=== PATIENT | female | born 1965 | race Hispanic/Latino ===

== ENCOUNTER 2017-10-31 07:33 | Outpatient (CLI) | payer BC ==
[~2017-10-31 07:33] MED LIST: ISOVUE-370 76%-LOCM 1 ML ONE
== END 2017-10-31 07:34 | disposition home or self-care (01) ==
LOC: BICCT 07:33
PROVIDERS: ATTEND Internal Medicine Hematology & Oncology
DX: C82.13 Follicular lymphoma grade II, intra-abdominal lymph nodes (principal); I88.0 Nonspecific mesenteric lymphadenitis; R59.0 Localized enlarged lymph nodes
CPT/HCPCS: 74177

== ENCOUNTER 2018-02-27 01:33 | Inpatient (IN) | payer BC ==
[2018-02-27 02:11] LABS: Bilirubin Negative (Negative); Blood, Urine Negative (Negative); Clarity CLEAR (Clear); Glucose, Urine (Dipstick) >=1000 mg/dL (Negative); Leukocyte Negative (Negative); Nitrite Negative (Negative); Protein, Urine (Dipstick) Negative (Neg-Trace); Urobilinogen 0.2 mg/dL (0.2-1.0); pH, Urine 7.5 (5.0-9.0)
[2018-02-27 02:21] LABS: #Basophils 0.1 thou/uL (0.0-0.2); #Eosinphils 0.1 thou/uL (0.0-0.7); #Lymphocytes 1.7 thou/uL (1.20-3.40); #Monocytes 0.5 thou/uL (0.11-0.59); #Neutrophils 4.9 thou/uL (1.40-6.50); %Basophils 0.8 % (0.0-1.0); %Eosinophils 0.7 % (0.0-10.0); %Monocytes 6.3 % (0.0-10.0); %Neutrophils 68.2 % (42.0-75.0); Hemoglobin 14.3 g/dL (12.0-16.0); Mean Corpuscular HGB CONC 32.9 g/dL (32.0-36.0); Mean Corpuscular Hemoglobin 29.1 pg (27.0-31.0); Mean Corpuscular Volume 88.3 fL (78.0-98.0); Mean Platelet Volume 7.2 fL (7.4-10.4); Platelet Count 276 thou/uL (130-400); RBC Distribution Width 13.2 % (11.5-14.5); Red Blood Cell (RBC) Count 4.93 mill/uL (4.20-5.40); White Blood Cell (WBC) Count 7.2 thou/uL (4.8-10.8)
[2018-02-27 02:37] LABS: ALT (SGPT) 32 U/L (8-55); AST (SGOT) 29 U/L (5-34); Albumin 4.1 g/dL (3.5-5.0); Alkaline Phosphatase 147 U/L (40-150); Anion Gap 11 mmol/L (10-20); BUN (Urea Nitrogen) 10 mg/dL (9.8-20.1); Bilirubin, Total 0.6 mg/dL (0.2-1.2); Calc. Creatinine Clearance 0 mL/min (70-130); Calcium 9.4 mg/dL (7.8-10.44); Carbon Dioxide 26 mmol/L (22-29); Chloride 105 mmol/L (98-107); Estimated GFR-MDRD 83; Globulin 3.8 g/dL (2.4-3.5); Glucose 128 mg/dL (70-105); Potassium 3.8 mmol/L (3.5-5.1); Protein, Total 7.9 g/dL (6.0-8.3); Sodium 138 mmol/L (136-145)
[2018-02-27] MEDS ORDERED: Ondansetron ODT 4 MG TAB ONE ×2 (05:00→07:44)
[2018-02-27] MEDS ORDERED: Benzocaine 20% Spray 60 ML CAN ONE (06:31)
[2018-02-27] MEDS ORDERED: Oxymetazoline HCl 0.05% ( 15 ML ) ONE (06:32)
[2018-02-27] MEDS ORDERED: Acetaminophen 325 MG TAB PO PRN (09:15)
[2018-02-27] MEDS ORDERED: Chloraseptic Spray 180 ml Bottle PO PRN (09:15)
[2018-02-27] MEDS ORDERED: Bisacodyl 10 MG SUPP PR PRN (09:15)
[2018-02-27] MEDS ORDERED: hydrALAZINE 20 MG/ML VIAL SLOW IVP PRN (09:15)
[2018-02-27] MEDS ORDERED: Ondansetron ODT 4 MG TAB SL PRN (09:15)
[2018-02-27] MEDS ORDERED: Sodium Chloride 0.65% Nasal 44 ML BOT EA NARE PRN (09:15)
[2018-02-27] MEDS ORDERED: Eucerin (Mineral Oil/Petrolatum,White) 30 gm Jar TOP PRN (09:15)
[2018-02-27] MEDS ORDERED: Artificial Tears 18 DROP/0.9 ML EA EYE PRN (09:15)
[2018-02-27] MEDS ORDERED: HumaLOG 300 UNITS/3 ML VIAL SC PRN ×2 (09:51)
[2018-02-27] MEDS ORDERED: Dextrose 5% in Water 1,000 ML IV PRN (09:51)
[2018-02-27] MEDS ORDERED: Dextrose 50% Abboject 50 ML SYRINGE SLOW IVP PRN (09:51)
[2018-02-27] MEDS: Lorazepam 2 MG/ML VIAL SLOW IVP PRN ×2 (09:57→20:29)
[2018-02-27] MEDS: Dextrose 5 % And 0.9 % NaCl 1,000 ML IV SCH ×2 (09:57→18:02)
[2018-02-27 10:06] VITALS: BMI 42.0
--- NOTE | 2018-02-27 10:31 | CT ---
PRELIMINARY REPORT/[facility]/EMERGENTY AFTER-HOURS PROCEDURE CT Abdomen and Pelvis With Intravenous Contrast CLINICAL HISTORY: 52 years old, female; Pain and signs and symptoms; Vomiting; Abdominal pain; Epigastric; Patient HX: Er 8; Pt reports HX of fatty liver; States 8 episodes of vomiting since 1900 today; Reports perumbili lauren and lower abdominal pain; States taking new mediations one . Surgical history of cholecystectomy, surgical history of hysterectomy. Biopsy in 2016 for dx of lymphoma. TECHNIQUE: Axial computed tomography images of the abdomen and pelvis with intravenous contrast. Coronal reforma tted images were created and reviewed. COMPARISON: No relevant prior studies available. FINDINGS: Lung bases: The visualized portions of the lung bases are normal. Mediastinum: A small hiatal hernia is present. ABDOMEN: Liver: There are no focal liver lesions identified. Gallbladder and bile ducts: There has been a cholecystectomy. No ductal dilation. Pancreas: The pancreas appears normal. No ductal dilation. Spleen: The spleen is normal. Adrenals: The adrenal glands are normal. Kidneys and ureters: There is a simple cyst in the left kidney. The right kidney is normal. No hydron ephrosis. Stomach and bowel: Small bowel is dilated up to 3.2 cm and contains fecal contents. There is abrupt c ollapse in the anterior pelvis consistent with small bowel obstruction. The stomach is normal. The du odenum is unremarkable. The colon is normal. No mucosal thickening. PELVIS: Appendix: A normal appendix is identified. Bladder: The bladder is normal. Reproductive: The uterus is not visualized, and may be atrophic or surgically absent. ABDOMEN and PELVIS: Intraperitoneal space: Normal. No free air. No significant fluid collection. Bones/joints: No acute fracture. No dislocation. Soft tissues: Normal. Vasculature: Normal. No abdominal aortic aneurysm. Lymph nodes: There are markedly enlarged mesenteric lymph nodes with a conglomeration of nodes measur ing up to 3 cm. IMPRESSION: 1. Small bowel is dilated up to 3.2 cm and contains fecal contents. There is abrupt collapse in the a nterior pelvis consistent with small bowel obstruction. 2. Marked mesenteric lymphadenopathy compatible with known diagnosis of lymphoma as above. Thank you for allowing us to participate in the care of your patient. Dictated and Authenticated by: Low Hidalgo MD 02/27/2018 5:57 AM Central Time ([place] & [place]) CT ABDOMEN AND PELVIS WITH IV CONTRAST: Date: 02-27-18 Performed on emergency basis at 0521 hours. History: Abdominal pain. FINDINGS: I agree with the preliminary report by Dr. Hidalgo from [facility]. Distention of the distal sm all bowel with fecalization with contents possibly related to partial or intermittent obstruction. Me senteric adenopathy consistent with lymphoma. Course calcification within the pelvis may be related t o fibroid disease of the uterus or vaginal cuff abnormality. Code QA POS: SJSabas
[2018-02-27] MEDS ORDERED: ISOVUE-370 76%-LOCM 1 ML ONE (10:35)
[2018-02-27] MEDS ORDERED: Prevnar 13-Val Conj/PF 0.5 ML SYRINGE IM ONE ×2 (10:45→13:00)
--- NOTE | 2018-02-27 11:07 | HP ---
PRIMARY CARE PHYSICIAN: [facility] call admission. REASON FOR ADMISSION: Small-bowel obstruction. HISTORY OF PRESENT ILLNESS: A 52-year-old female who presented to the Emergency Room for ev aluation of nausea, vomiting, abdominal pain. All symptoms started yesterday afternoon. The patient had several times vomiting containing food particle and biliary yellowish without any blood. Her pa in was intermittent, crampy, sharp, 6/10 in intensity, lasted the entire day. She tried Zofran that helped her vomiting, but nausea was persistent and crampy abdominal pain was persistent. She also alfaro d several times vomiting last night. She had last food at 7:30 yesterday. Since then she was not ab le to hold anything. She was not passing gas and had bowel movement since yesterday. She was feelin g mild abdominal distention. She denies any hematochezia or melena. She denies any UTI symptoms. S he denies any chest pain, palpitation, shortness of breath. She did not have this type of problem in past. She has history of lymphoma, but she is not on any specific chemotherapy and she is followed by Dr. Hernandez. She has previous history of cholecystectomy and hysterectomy. REVIEW OF SYSTEMS: The following complete review of systems was negative, unless otherwise mentioned in the HPI or below: Constitutional: Weight loss or gain, ability to conduct usual activities. Skin: Rash, itching. Eyes: Double vision, pain. ENT/Mouth: Nose bleeding, neck stiffness, pain, tenderness. Cardiovascular: Palpitations, dyspnea on exertion, orthopnea. Respiratory: Shortness of breath, wheezing, cough, hemoptysis, fever or night sweats. Gastrointestinal: Poor appetite, abdominal pain, heartburn, nausea, vomiting, constipation, or diarrhea. Genitourinary: Urgency, frequency, dysuria, nocturia. Musculoskeletal: Pain, swelling. Neurologic/Psychiatric: Anxiety, depression. Allergy/Immunologic: Skin rash, bleeding tendency. Please see my HPI for pertinent positive and negative. All other review of systems reviewed and nega tive except as mentioned in the HPI. PAST MEDICAL HISTORY: Irritable bowel syndrome, fatty liver disease, diabetes type 2. H. pylori inf ection in past with peptic ulcer disease, history of diverticulitis, hypothyroidism, gastroesophageal reflux disease. PAST PSYCHIATRIC HISTORY: Anxiety and depression. PAST SURGICAL HISTORY: Cholecystectomy, hysterectomy, biopsy in 2016 for lymph node biopsy for diagn osis of lymphoma. SOCIAL HISTORY: The patient is and lives at home. No history of tobacco, alcohol or illicit drug abuse. The patient has secondhand exposure of smoking from her . FAMILY HISTORY: One brother diagnosed with cirrhosis. Otherwise, no strong family history of premat ure coronary artery disease, stroke or cancer. ALLERGIES: No known drug allergy. CURRENT HOME MEDICATIONS: Dapagliflozin 5 mg daily, Lexapro 10 mg p.o. daily, Synthroid 75 mcg p.o. daily, Zofran ODT 4 mg t.i.d. p.r.n., Protonix 40 mg p.o. daily, rifaximin 550 mg t.i.d. EMERGENCY ROOM COURSE: The patient had NG tube placed, Zofran 4 mg x3 given morphine 2 mg x2 given. PHYSICAL EXAMINATION: VITAL SIGNS: On arrival, blood pressure 161/93, pulse 76, respiratory rate 17, temperature 97.6, sat uration 99% on room air, weight 99.7 kilograms. GENERAL: The patient is currently alert, awake, no obvious acute distress. HEENT: Head; normocephalic, atraumatic. Eyes; pupils round, reactive to light. Extraocular muscle intact. ENT; NG tube in place with low intermittent suction. Oropharynx is within normal limits. M oist mucous membrane, no oral lesion, no pharyngeal erythema, no exudate. NECK: Supple, no JVD, no thyromegaly, no carotid bruit. LUNGS: Clear to auscultation without any rhonchi or rales. CARDIAC: S1, S2 regular without any murmur. ABDOMEN: Soft. The patient does have tenderness predominantly periumbilical, unable to hear well rafael wel sounds. No peritoneal sign, no guarding, no rigidity, no rebound. BACK: Unremarkable, no CVA tenderness. EXTREMITIES: Upper extremity passive movement of all joints are normal. Lower extremities: No padmini a. Good peripheral pulsation, no calf tenderness. SKIN: No skin rash. HEMATOLOGIC: No obvious palpable lymphadenopathy. PSYCHIATRIC: Normal affect. NEUROLOGIC: Nonfocal examination. The patient moves all 4 limbs. Plantar bilateral flexor. SIGNIFICANT LABORATORY DATA: CT of the abdomen and pelvis showing small bowel dilated up to 3.2 cm a nd contains fecal material. There is abrupt collapse in anterior pelvis consistent with small-bowel obstruction. There is marked mesenteric lymphadenopathy. CBC: WBC 7.2, hemoglobin 14.3, platelet 276. BMP: Sodium 138, potassium 3.8, chloride 105, carbon dioxide 26, BUN 10, creatinine 0.73. Glucose 128, calcium 9.4. LFT: AST 29, ALT 32, alkaline phosp hatase is 147, albumin 4.1, lipase 30. Urinalysis: Glucosuria, ketonuria. ASSESSMENT AND PLAN: 1. Acute small-bowel obstruction. The patient has nausea, vomiting, abdominal pain started yesterda y, gradually getting worse. Radiographically the patient does have a small-bowel obstruction. Diffe rential diagnosis for etiology either adhesion induced obstruction given her previous history of chol ecystectomy and hysterectomy. Enlarged lymph node induced obstruction is possible given mesenteric l ymphadenopathy, volvulus ischemic etiology less likely. At this point, the patient will be treated c onservatively with NG tube with low intermittent suction. The patient will be given IV fluid for hyd ration. Her pain will be controlled with morphine p.r.n. basis. We will continue the Protonix 40 mg IV b.i.d. The patient will need small bowel x-ray to see resolution of small-bowel obstruction. If she fails conservative treatment then only she will need surgical treatment option. General Surgery will follow up on this patient as well. We will monitor in hospital closely. 2. Mesenteric lymphadenopathy. The patient does have a history of lymphoma and not on any specific treatment. We will consult Dr. Hernandez for her opinion. 3. Diabetes type 2. We will continue dextrose with NS solution for IV fluid given her diabetes hist ory and n.p.o. status. Meanwhile, we will continue with insulin as per sliding scale per protocol. Once patient starts p.o. intake then fluid, we will change to normal saline and will resume her home medication. 4. Hypothyroidism. Currently, the patient is n.p.o. and that is why we are holding Synthroid, but o nce patient's p.o. intake resumed then we will continue Synthroid 75 mcg p.o. daily 5. Anxiety and depression. We are holding Lexapro for now, but we will resume that after oral intak e started. For anxiety we will use Ativan 0.5 mg q.6h. p.r.n. 6. Gastroesophageal reflux disease. We will continue Protonix 40 mg IV b.i.d. for now and then we w ill resume to p.o. 7. Obesity with BMI 42. Dietary education given, weight loss education given. Healthy lifestyle me asures discussed with the patient. 8. Deep venous thrombosis prophylaxis. Lovenox 40 mg subcu daily. 9. Gastrointestinal prophylaxis. The patient is already on Protonix therapy. 10. Code status: The patient is FULL CODE. Patient's is surrogate decision maker. Disposition plan based on clinical course. We are expecting the patient's stay in hospital more than 2 midnights. Plan of care discussed with the patient in detail.
[2018-02-27] MEDS: Ondansetron HCl/PF 4 MG/2 ML Vial IVP PRN ×2 (12:11→20:36)
--- NOTE | 2018-02-27 18:40 | CON ---
DATE OF CONSULTATION: 02/27/2018 REASON FOR CONSULTATION: Follicular lymphoma. HISTORY OF PRESENT ILLNESS: Ms. Kyle is a pleasant 52-year-old female with a known his tory of low grade follicular lymphoma. She was diagnosed in 2014 and has been monitored with CT scan s every 3 months since that time. She presented to the emergency room with an acute onset of nausea and abdominal pain. She had a CT of her abdomen and pelvis, which showed small bowel dilation up to 3.2 cm. There was an collapse in the anterior pelvis consistent with small-bowel obstruction. She d id have her mesenteric lymphadenopathy consistent with her diagnosis of lymphoma. She had an NG tube placed and Dr. Hawkins was consulted to see the patient. The patient has a history of irritable bowel and is under the care of Dr. Mccann. She was recently started on new medication including Synthroid and rifaximin. Her last bowel movement was yesterday. She denies any chest pain or shortness of virgen ath. No recent fevers or night sweats, no weight loss. PAST MEDICAL HISTORY: 1. Asymptomatic follicular lymphoma with mesenteric lymphadenopathy diagnosed in 2014. 2. Chronic nausea associated with irritable bowel syndrome. 3. Hypothyroidism. 4. Psoriasis. 5. Diabetes. PAST SURGICAL HISTORY: None. ALLERGIES: No known drug allergies. HOME MEDICATIONS: 1. Dapagliflozin propanediol 5 mg daily. 2. Citalopram 10 mg daily. 3. Synthroid 75 mcg daily. 4. Zofran p.r.n. 5. Protonix 40 mg daily. 6. Rifaximin 550 mg t.i.d. FAMILY HISTORY: Her mother had rheumatoid arthritis. SOCIAL HISTORY: , has no children. No alcohol, tobacco or illicit drug use. REVIEW OF SYSTEMS: Twelve-point review of systems is positive for nausea and abdominal pain, otherwi se negative. PHYSICAL EXAMINATION: VITAL SIGNS: Temperature is 97.8, pulse 64, respiratory rate 16, BP is 120/58. She is 98% on room a ir. GENERAL: Obese female, in no acute distress. HEENT: Normocephalic, atraumatic. Pupils equal and reactive to light. NECK: Supple. CARDIOVASCULAR: Regular rate and rhythm. LUNGS: Clear. ABDOMEN: Soft, nontender, bowel sounds are hyperactive. She has a NG tube in place with scant green output. EXTREMITIES: No clubbing, cyanosis or edema. SKIN: No rash. HEMATOLOGIC: No petechia or purpura. NEUROLOGIC: Nonfocal. PSYCHIATRIC: The patient is alert and oriented and appropriate. PERTINENT LABORATORY AND X-RAYS: Current WBCs 7.2, hemoglobin 14.3, hematocrit 43.5, platelet count is 276,000. She has got 68% neutrophils, 24% lymphocytes. Sodium is 138, potassium 3.8, chloride 10 5, CO2 is 26, BUN 10, creatinine 0.73, calcium is 9.4, total bilirubin is 0.6, AST is 29, ALT is 32, alkaline phosphatase is 147. Serum total protein is 7.9, albumin 4.1, globulin 3.8. ASSESSMENT AND PLAN: 1. Low grade follicular lymphoma. 2. Small-bowel obstruction. DISCUSSION: The patient has an NG tube placed. Dr. Hawkins is on the case. The patient's CT scan was not compared to her prior CT scan in 10/2017 as it was unavailable. I have spoken with Dr. Jostin nagel who compared the two scans and states that there is no change in the size of her lymph nodes on the scan compared to the prior scan from 10/31/2017. She does have a long history of irritable rosario l syndrome. We will consider a GI consult. She will follow up [facility] Dr[facility] There is no treatment needed at this time for her follicular lymphoma. We will follow her re florin.
[2018-02-27] MEDS: Pantoprazole 40 MG VIAL IVP SCH (20:30)
[2018-02-27] MEDS ORDERED: Famotidine/PF 20 mg/2ml Vial SLOW IVP SCH (21:00)
[2018-02-28] MEDS: Dextrose 5 % And 0.9 % NaCl 1,000 ML IV SCH ×3 (02:55→17:44)
--- NOTE | 2018-02-28 03:22 | HP ---
DATE OF CONSULTATION: 02/27/2018 CHIEF COMPLAINT: Abdominal pain, nausea, vomiting. HISTORY OF PRESENT ILLNESS: The patient is a 52-year-old female who has known follicular lymphoma of the abdominal cavity, has known adenopathy. He has also had previous surgeries and had the acute on set of mid abdominal pain yesterday afternoon associated with nausea, vomiting. Her last bowel movem ent was yesterday. PAST MEDICAL HISTORY: Obesity, lymphoma, diabetes, hypothyroidism. PAST SURGICAL HISTORY: Cholecystectomy, hysterectomy and that was done laparoscopically and a laparo scopic biopsy of a lymph node. MEDICATIONS: Farxiga, Levothroid and pantoprazole. ALLERGIES: No known drug allergies. FAMILY HISTORY: Asthma. SOCIAL HISTORY: , works at [employer]. No tobacco or alcohol. PHYSICAL EXAMINATION: VITAL SIGNS: Temperature 97.6, pulse 68, blood pressure 149/72. GENERAL: Obese female in no apparent distress. HEENT: There is an NG tube in place. LUNGS: Clear. HEART: Regular rate and rhythm. ABDOMEN: Obese, soft, nontender, no palpable masses. IMAGING: CT scan shows dilated small bowel, abrupt transition zone in the anterior pelvis. There is multiple adenopathy. ASSESSMENT: Small-bowel obstruction, possibly due to adhesions, possibly due to lymphoma. PLAN: NG suction, IV hydration, small bowel follow-through in the morning if not better.
[2018-02-28 06:02] LABS: #Lymphocytes 1.4 thou/uL (1.20-3.40); #Monocytes 0.6 thou/uL (0.11-0.59); #Neutrophils 5.3 thou/uL (1.40-6.50); %Basophils 0.2 % (0.0-1.0); %Eosinophils 0.5 % (0.0-10.0); %Lymphocytes 18.6 % (21.0-51.0); %Monocytes 8.1 % (0.0-10.0); %Neutrophils 72.6 % (42.0-75.0); Hemoglobin 12.6 g/dL (12.0-16.0); Mean Corpuscular HGB CONC 31.3 g/dL (32.0-36.0); Mean Corpuscular Hemoglobin 28.4 pg (27.0-31.0); Mean Corpuscular Volume 90.5 fL (78.0-98.0); Platelet Count 247 thou/uL (130-400); RBC Distribution Width 13.5 % (11.5-14.5); Red Blood Cell (RBC) Count 4.44 mill/uL (4.20-5.40); White Blood Cell (WBC) Count 7.3 thou/uL (4.8-10.8)
[2018-02-28 06:35] LABS: ALT (SGPT) 30 U/L (8-55); AST (SGOT) 25 U/L (5-34); Albumin 3.6 g/dL (3.5-5.0); Alkaline Phosphatase 130 U/L (40-150); Anion Gap 7 mmol/L (10-20); BUN (Urea Nitrogen) 6 mg/dL (9.8-20.1); Bilirubin, Total 0.5 mg/dL (0.2-1.2); Calc. Creatinine Clearance 139 mL/min (70-130); Calcium 8.5 mg/dL (7.8-10.44); Carbon Dioxide 26 mmol/L (22-29); Chloride 109 mmol/L (98-107); Estimated GFR-MDRD 86; Globulin 3.1 g/dL (2.4-3.5); Glucose 156 mg/dL (70-105); Potassium 3.6 mmol/L (3.5-5.1); Protein, Total 6.7 g/dL (6.0-8.3); Sodium 138 mmol/L (136-145)
[2018-02-28] MEDS: Pantoprazole 40 MG VIAL IVP SCH ×2 (08:01→20:37)
[2018-02-28] MEDS: Enoxaparin Sodium 40 MG/0.4 ML SYRINGE SC SCH (08:01)
--- NOTE | 2018-02-28 09:55 | PDOC.PN ---
- Subjective Encounter Start Date: 02/28/18 Encounter Start Time: 07:00 -: old records requested/rev Patient seen and examined for sbo, she is passing gas, no abdominal pain. No new complaints. No overnight events - Objective Resuscitation Status: Resuscitation Status FULL:Full Resuscitation MAR Reviewed: Yes Vital Signs & Weight: Vital Signs (12 hours) Temp Pulse Resp BP Pulse Ox 02/28/18 07:25 98.5 F 70 16 96 02/28/18 07:18 98.5 F 70 16 132/68 96 02/28/18 05:42 98.1 F 63 16 127/61 97 02/28/18 00:00 97.8 F 67 16 130/67 97 Weight Weight 215 lb I&O: 02/27/18 02/28/18 03/01/18 06:59 06:59 06:59 Intake Total 1432 Output Total 800 Balance 632 Result Diagrams: 02/28/18 05:41 02/28/18 05:41 Additional Labs: Accuchecks 02/28/18 02/28/18 02/27/18 05:37 00:09 17:58 POC Glucose 133 H 146 H 135 H 02/27/18 11:41 POC Glucose 132 H Phys Exam - Physical Examination Constitutional: NAD HEENT: PERRLA, moist MMs, sclera anicteric NG tube+ Neck: no JVD, supple Respiratory: no wheezing, no rales, no rhonchi Cardiovascular: RRR, no significant murmur, no rub Gastrointestinal: soft, non-tender, no distention, positive bowel sounds Musculoskeletal: no edema, pulses present Neurological: non-focal, normal sensation, moves all 4 limbs Psychiatric: normal affect, A&O x 3 Skin: no rash, normal turgor Dx/Plan (1) SBO (small bowel obstruction) Code(s): K56.609 - UNSP INTESTNL OBST, UNSP TO PARTIAL VERSUS COMPLETE OBST Status: Acute (2) Anxiety and depression Code(s): F41.9 - ANXIETY DISORDER, UNSPECIFIED; F32.9 - MAJOR DEPRESSIVE DISORDER, SINGLE EPISODE, UNSPECIFIED Status: Chronic (3) Diabetes type 2, controlled Code(s): E11.9 - TYPE 2 DIABETES MELLITUS WITHOUT COMPLICATIONS Status: Chronic (4) Follicular lymphoma Code(s): C82.90 - FOLLICULAR LYMPHOMA, UNSPECIFIED, UNSPECIFIED SITE Status: Chronic Comment: stable (5) GERD (gastroesophageal reflux disease) Code(s): K21.9 - GASTRO-ESOPHAGEAL REFLUX DISEASE WITHOUT ESOPHAGITIS Status: Chronic (6) Hypothyroidism Code(s): E03.9 - HYPOTHYROIDISM, UNSPECIFIED Status: Chronic (7) Irritable bowel syndrome Status: Chronic (8) Mesenteric lymphadenopathy Code(s): R59.0 - LOCALIZED ENLARGED LYMPH NODES Status: Chronic Comment: stable (9) Morbid obesity with BMI of 40.0-44.9, adult Code(s): E66.01 - MORBID (SEVERE) OBESITY DUE TO EXCESS CALORIES; Z68.41 - BODY MASS INDEX (BMI) 40.0-44.9, ADULT Status: Chronic - Plan cont current plan of care, plan discussed w/ family * will clamp NG tube * see how she does * if OK, will start clear liquid diet and advance diet as tolerated * will resume selected home meds * medication reviewed as below * symptomatic treatment. * discussed with family Review of Systems - Review of Systems Constitutional: negative: fever, chills, sweats, weakness, malaise, other ENT: negative: Ear Pain, Ear Discharge, Nose Pain, Nose Discharge, Nose Congestion, Mouth Pain, Mouth Swelling, Throat Pain, Throat Swelling, Other Respiratory: negative: Cough, Dry, Shortness of Breath, Hemoptysis, SOB with Excertion, Pleuritic Pain, Sputum, Wheezing Cardiovascular: negative: chest pain, palpitations, orthopnea, paroxysmal nocturnal dyspnea, edema, light headedness, other Gastrointestinal: negative: Nausea, Vomiting, Abdominal Pain, Diarrhea, Constipation, Melena, Hematochezia, Other Genitourinary: negative: Dysuria, Frequency, Incontinence, Hematuria, Retention , Other Musculoskeletal: negative: Neck Pain, Shoulder Pain, Arm Pain, Back Pain, Hand Pain, Leg Pain, Foot Pain, Other Skin: negative: Rash, Lesions, [place], Bruising, Other - Medications/Allergies Allergies/Adverse Reactions: Allergies Allergy/AdvReac Type Severity Reaction Status Date / Time No Known Allergies Allergy Verified 02/27/18 09:43 Medications: Current Medications Acetaminophen (Tylenol) 650 mg PO Q4H PRN PRN Reason: Headache/Fever or Pain Artificial Tears (Tears Naturale) 0 drop EA EYE PRN PRN PRN Reason: Dry Eyes Bisacodyl (Dulcolax) 10 mg AL Q24H PRN PRN Reason: Constipation Dextrose/Water (Dextrose 50%) 25 gm SLOW IVP PRN PRN PRN Reason: Hypoglycemia Enoxaparin Sodium (Lovenox) 40 mg SC 0900 [facility] Last Admin: 02/28/18 08:01 Dose: 40 mg Glucagon (Glucagon) 1 mg IM PRN PRN PRN Reason: Hypoglycemia Hydralazine HCl (Apresoline) 10 mg SLOW IVP Q4H PRN PRN Reason: Systolic BP > 180 Dextrose/Sodium Chloride (D5 0.9% Ns) 1,000 mls @ 125 mls/hr IV .Q8H [facility] Last Admin: 02/28/18 08:05 Dose: 1,000 mls Dextrose/Water (D5w) 1,000 mls @ 0 mls/hr IV .Q0M PRN; As Directed PRN Reason: Hypoglycemia Insulin Human Lispro (Humalog) 0 units SC .MODERATE SLIDING SC PRN PRN Reason: Moderate Correctional Scale Insulin Human Lispro (Humalog) 0 units SC .BEDTIME SLIDING SC PRN PRN Reason: Bedtime Correctional Scale Lorazepam (Ativan) 0.5 mg SLOW IVP Q6H PRN PRN Reason: Anxiety/Agitation Last Admin: 02/27/18 20:29 Dose: 0.5 mg Mineral Oil/White Petrolatum (Eucerin Cream) 0 gm TOP BIDPRN PRN PRN Reason: Dry Skin Morphine Sulfate (Morphine) 2 mg SLOW IVP Q2H PRN PRN Reason: Pain Last Admin: 02/27/18 19:35 Dose: 2 mg Ondansetron HCl (Zofran Odt) 4 mg SL Q6H PRN PRN Reason: Nausea/Vomiting Ondansetron HCl (Zofran) 4 mg IVP Q6H PRN PRN Reason: Nausea/Vomiting Last Admin: 02/27/18 20:36 Dose: 4 mg Pantoprazole Sodium (Protonix) 40 mg IVP Q12HR [facility] Last Admin: 02/28/18 08:01 Dose: 40 mg Phenol (Chloraseptic [place] 180 Ml Bot) 0 ml PO PRN PRN PRN Reason: Sore Throat Sodium Chloride ([place] Nasal [place] 0.65%) 0 ml EA NARE QIDPRN PRN PRN Reason: Nasal Congestion Sodium Chloride (Flush - Normal Saline) 10 ml IVF Q12HR SONAL Last Admin: 02/28/18 08:02 Dose: 10 ml Sodium Chloride (Flush - Normal Saline) 10 ml IVF PRN PRN PRN Reason: Saline Flush Last Admin: 02/27/18 19:36 Dose: 10 ml
[2018-03-01] MEDS: Dextrose 5 % And 0.9 % NaCl 1,000 ML IV SCH (03:58)
[2018-03-01] MEDS: Levothyroxine Sodium 75 MCG TAB PO SCH (06:29)
[2018-03-01] MEDS: Enoxaparin Sodium 40 MG/0.4 ML SYRINGE SC SCH (09:14)
[2018-03-01] MEDS: Escitalopram Oxalate 10 mg Tablet PO SCH (09:14)
[2018-03-01] MEDS: Pantoprazole 40 MG VIAL IVP SCH (10:18)
--- NOTE | 2018-03-01 10:25 | DIS ---
DATE OF ADMISSION: 02/27/2018 DATE OF DISCHARGE: 03/01/2018 PRIMARY CARE PHYSICIAN: [facility] call admission. DISCHARGE DISPOSITION: Home. PRIMARY DISCHARGE DIAGNOSES: Small-bowel obstruction suspected from adhesion resolved with conservat lila therapy. SECONDARY DISCHARGE DIAGNOSES: Mesenteric lymphadenopathy, follicular lymphoma, gastroesophageal ref lux disease, hypothyroidism, diabetes type 2, anxiety and depression, morbid obesity with body mass i ndex 42, irritable bowel syndrome. PRIMARY PROCEDURE/OPERATION: None. RADIOLOGICAL INVESTIGATION: Abdomen and pelvis CT scan showed findings suggestive of small-bowel obs truction and mesenteric lymphadenopathy. SIGNIFICANT LABORATORY DATA: WBC 7.3, hemoglobin 12.6, and platelet 247. Sodium 138, potassium 3.6, BUN 6, creatinine 0.71, calcium 8.5. LFT normal, lipase 30. Urinalysis unremarkable. DISCHARGE MEDICATIONS: Patient will continue all her previous medications; dapagliflozin 5 mg p.o. d aily, Lexapro 10 mg p.o. daily, Synthroid 75 mcg p.o. daily, Zofran ODT 4 mg p.o. t.i.d. p.r.n., Prot brian 40 mg p.o. daily, rifaximin 550 mg p.o. t.i.d. CONTRAINDICATIONS: None. CODE STATUS: FULL CODE. INPATIENT CONSULTANTS: Dr. Hawkins was consulted while in hospital for small-bowel obstruction. Dr. Sugar acevedo was consulted for follicular lymphoma. TEST RESULTS PENDING ON DISCHARGE: None. ALLERGIES: No known drug allergy. DISCHARGE PLAN: Post hospital, patient will make appointment with Dr. Hernandez and Dr. Hawkins as instr ucted. HOSPITAL COURSE: A 52-year-old female who was admitted by mn on 02/27/2018. Please see my HPI for f urther details. The patient was having nausea, vomiting and abdominal pain. She was diagnosed with a small-bowel obstruction on CT scan. The patient also found with mesenteric lymphadenopathy. She h as follicular lymphoma and she is followed by Dr. Hernandez. She is not on any chemotherapy for follic ular lymphoma and just only observed periodically with imaging. When we compared her previous imagin g with this imaging, patient's mesenteric lymphadenopathy was not changed. Patient has previous hist ory of cholecystectomy and hysterectomy. We suspected current small-bowel obstruction from adhesions . We treated her conservatively with NG tube with low intermittent suction, IV fluid, control of justin n. Next day, patient started passing gas and she also had large bowel movement. Her obstruction cli nically resolved. She did not require any small bowel follow through. We started on clear liquid diet and advance her diet as tolerated. We are expecting this patient discharge later on today if she is tolerating her solid food. The patient is seen and examined at bedside today. PHYSICAL EXAMINATION: VITAL SIGNS: Currently, temperature 98.7, pulse 69, respiratory rate 16, saturation 96% on room air, blood pressure 124/76, weight 215 pounds. GENERAL: The patient is currently alert, awake, no acute distress. HEAD: Normocephalic, atraumatic. EYES: Pupils round and reactive to light. Extraocular muscle intact. ENT: Oropharynx within normal limits. Moist mucous membrane, no oral lesion, no pharyngeal erythema , no exudate. NECK: Supple, no JVD, no thyromegaly, no carotid bruit. LUNGS: Clear to auscultation without any rhonchi or rales. CARDIAC: S1 and S2 regular without any murmur. ABDOMEN: Soft, benign, obesity present. EXTREMITIES: No edema. NEUROLOGIC: Nonfocal examination. Overall, patient is medically stable for discharge as long as she tolerates diet.
--- NOTE | 2018-03-01 11:02 | PDOC.PN ---
- Subjective Encounter Start Date: 03/01/18 Encounter Start Time: 10:00 Patient seen and examined. No new complaints. No overnight events - Objective Resuscitation Status: Resuscitation Status FULL:Full Resuscitation MAR Reviewed: Yes Vital Signs & Weight: Vital Signs (12 hours) Temp 03/01/18 00:00 98.7 F Weight Weight 215 lb I&O: 02/28/18 03/01/18 03/02/18 06:59 06:59 06:59 Intake Total 1432 Output Total 800 Balance 632 Result Diagrams: 02/28/18 05:41 02/28/18 05:41 Additional Labs: Accuchecks 03/01/18 02/28/18 02/28/18 06:34 23:41 18:02 POC Glucose 128 H 125 H 118 H 02/28/18 12:49 POC Glucose 115 H Phys Exam - Physical Examination Constitutional: NAD HEENT: PERRLA, moist MMs, sclera anicteric Neck: no JVD, supple Respiratory: no wheezing, no rales, no rhonchi Cardiovascular: RRR, no significant murmur, no rub Gastrointestinal: soft, non-tender, no distention, positive bowel sounds Musculoskeletal: no edema, pulses present Neurological: non-focal, normal sensation, moves all 4 limbs Psychiatric: normal affect, A&O x 3 Skin: no rash, normal turgor Dx/Plan (1) SBO (small bowel obstruction) Code(s): K56.609 - UNSP INTESTNL OBST, UNSP TO PARTIAL VERSUS COMPLETE OBST Status: Acute (2) Anxiety and depression Code(s): F41.9 - ANXIETY DISORDER, UNSPECIFIED; F32.9 - MAJOR DEPRESSIVE DISORDER, SINGLE EPISODE, UNSPECIFIED Status: Chronic (3) Diabetes type 2, controlled Code(s): E11.9 - TYPE 2 DIABETES MELLITUS WITHOUT COMPLICATIONS Status: Chronic (4) Follicular lymphoma Code(s): C82.90 - FOLLICULAR LYMPHOMA, UNSPECIFIED, UNSPECIFIED SITE Status: Chronic Comment: stable (5) GERD (gastroesophageal reflux disease) Code(s): K21.9 - GASTRO-ESOPHAGEAL REFLUX DISEASE WITHOUT ESOPHAGITIS Status: Chronic (6) Hypothyroidism Code(s): E03.9 - HYPOTHYROIDISM, UNSPECIFIED Status: Chronic (7) Irritable bowel syndrome Status: Chronic (8) Mesenteric lymphadenopathy Code(s): R59.0 - LOCALIZED ENLARGED LYMPH NODES Status: Chronic Comment: stable (9) Morbid obesity with BMI of 40.0-44.9, adult Code(s): E66.01 - MORBID (SEVERE) OBESITY DUE TO EXCESS CALORIES; Z68.41 - BODY MASS INDEX (BMI) 40.0-44.9, ADULT Status: Chronic - Plan cont current plan of care * medication reviewed as below * symptomatic treatment * see discharge félix. Review of Systems - Review of Systems Eyes: negative: Pain, Vision Change, Conjunctivae Inflammation, Eyelid Inflammation, Redness, Other ENT: negative: Ear Pain, Ear Discharge, Nose Pain, Nose Discharge, Nose Congestion, Mouth Pain, Mouth Swelling, Throat Pain, Throat Swelling, Other Respiratory: negative: Cough, Dry, Shortness of Breath, Hemoptysis, SOB with Excertion, Pleuritic Pain, Sputum, Wheezing Cardiovascular: negative: chest pain, palpitations, orthopnea, paroxysmal nocturnal dyspnea, edema, light headedness, other Gastrointestinal: negative: Nausea, Vomiting, Abdominal Pain, Diarrhea, Constipation, Melena, Hematochezia, Other Genitourinary: negative: Dysuria, Frequency, Incontinence, Hematuria, Retention , Other Musculoskeletal: negative: Neck Pain, Shoulder Pain, Arm Pain, Back Pain, Hand Pain, Leg Pain, Foot Pain, Other Skin: negative: Rash, Lesions, Betito, Bruising, Other - Medications/Allergies Allergies/Adverse Reactions: Allergies Allergy/AdvReac Type Severity Reaction Status Date / Time No Known Allergies Allergy Verified 02/27/18 09:43 Medications: Current Medications Acetaminophen (Tylenol) 650 mg PO Q4H PRN PRN Reason: Headache/Fever or Pain Artificial Tears (Tears Naturale) 0 drop EA EYE PRN PRN PRN Reason: Dry Eyes Bisacodyl (Dulcolax) 10 mg [place] Q24H PRN PRN Reason: Constipation Dextrose/Water (Dextrose 50%) 25 gm SLOW IVP PRN PRN PRN Reason: Hypoglycemia Enoxaparin Sodium (Lovenox) 40 mg SC 0900 [facility] Last Admin: 03/01/18 09:14 Dose: 40 mg Escitalopram Oxalate (Lexapro) 10 mg PO DAILY [facility] Last Admin: 03/01/18 09:14 Dose: 10 mg Glucagon (Glucagon) 1 mg IM PRN PRN PRN Reason: Hypoglycemia Hydralazine HCl (Apresoline) 10 mg SLOW IVP Q4H PRN PRN Reason: Systolic BP > 180 Dextrose/Water (D5w) 1,000 mls @ 0 mls/hr IV .Q0M PRN; As Directed PRN Reason: Hypoglycemia Insulin Human Lispro (Humalog) 0 units SC .MODERATE SLIDING SC PRN PRN Reason: Moderate Correctional Scale Insulin Human Lispro (Humalog) 0 units SC .BEDTIME SLIDING SC PRN PRN Reason: Bedtime Correctional Scale Levothyroxine Sodium (Synthroid) 75 mcg PO 0600 [facility] Last Admin: 03/01/18 06:29 Dose: 75 mcg Lorazepam (Ativan) 0.5 mg SLOW IVP Q6H PRN PRN Reason: Anxiety/Agitation Last Admin: 02/27/18 20:29 Dose: 0.5 mg Mineral Oil/White Petrolatum (Eucerin Cream) 0 gm TOP BIDPRN PRN PRN Reason: Dry Skin Morphine Sulfate (Morphine) 2 mg SLOW IVP Q2H PRN PRN Reason: Pain Last Admin: 02/27/18 19:35 Dose: 2 mg Ondansetron HCl (Zofran Odt) 4 mg SL Q6H PRN PRN Reason: Nausea/Vomiting Ondansetron HCl (Zofran) 4 mg IVP Q6H PRN PRN Reason: Nausea/Vomiting Last Admin: 02/27/18 20:36 Dose: 4 mg Pantoprazole Sodium (Protonix) 40 mg PO DAILY [facility] Last Admin: 03/01/18 09:14 Dose: 40 mg Phenol (Chloraseptic [place] 180 Ml Bot) 0 ml PO PRN PRN PRN Reason: Sore Throat Sodium Chloride ([place] Nasal [place] 0.65%) 0 ml EA NARE QIDPRN PRN PRN Reason: Nasal Congestion Sodium Chloride (Flush - Normal Saline) 10 ml IVF Q12HR [facility] Last Admin: 03/01/18 09:14 Dose: 10 ml Sodium Chloride (Flush - Normal Saline) 10 ml IVF PRN PRN PRN Reason: Saline Flush Last Admin: 02/27/18 19:36 Dose: 10 ml
[2018-03-02] MEDS: Levothyroxine Sodium 75 MCG TAB PO SCH (06:29)
[2018-03-02 07:21] VITALS: BP 131/82; TEMP 98.3
[2018-03-02] MEDS: Escitalopram Oxalate 10 mg Tablet PO SCH (09:20)
[2018-03-02] MEDS: Enoxaparin Sodium 40 MG/0.4 ML SYRINGE SC SCH (09:20)
--- NOTE | 2018-03-02 10:16 | PDOC.PN ---
- Subjective Encounter Start Date: 03/02/18 Encounter Start Time: 07:00 Patient seen and examined. No new complaints. No overnight events - Objective Resuscitation Status: Resuscitation Status FULL:Full Resuscitation MAR Reviewed: Yes Vital Signs & Weight: Vital Signs (12 hours) Temp Pulse Resp BP Pulse Ox 03/02/18 09:24 98.3 F 58 L 18 03/02/18 07:49 98.3 F 58 L 18 98 03/02/18 07:19 98.3 F 58 L 18 131/82 98 Weight Weight 215 lb I&O: 03/01/18 03/02/18 03/03/18 06:59 06:59 06:59 Intake Total 970 Balance 970 Result Diagrams: 02/28/18 05:41 02/28/18 05:41 Additional Labs: Accuchecks 03/02/18 03/01/18 03/01/18 06:34 21:18 16:35 POC Glucose 104 95 88 03/01/18 11:19 POC Glucose 88 Phys Exam - Physical Examination Constitutional: NAD HEENT: PERRLA, moist MMs, sclera anicteric Neck: no JVD, supple Respiratory: no wheezing, no rales, no rhonchi Cardiovascular: RRR, no significant murmur, no rub Gastrointestinal: soft, non-tender, no distention, positive bowel sounds Musculoskeletal: no edema, pulses present Neurological: non-focal, normal sensation, moves all 4 limbs Lymphatic: no nodes Psychiatric: normal affect, A&O x 3 Skin: no rash, normal turgor Dx/Plan (1) SBO (small bowel obstruction) Code(s): K56.609 - UNSP INTESTNL OBST, UNSP TO PARTIAL VERSUS COMPLETE OBST Status: Resolved (2) Anxiety and depression Code(s): F41.9 - ANXIETY DISORDER, UNSPECIFIED; F32.9 - MAJOR DEPRESSIVE DISORDER, SINGLE EPISODE, UNSPECIFIED Status: Chronic (3) Diabetes type 2, controlled Code(s): E11.9 - TYPE 2 DIABETES MELLITUS WITHOUT COMPLICATIONS Status: Chronic (4) Follicular lymphoma Code(s): C82.90 - FOLLICULAR LYMPHOMA, UNSPECIFIED, UNSPECIFIED SITE Status: Chronic Comment: stable (5) GERD (gastroesophageal reflux disease) Code(s): K21.9 - GASTRO-ESOPHAGEAL REFLUX DISEASE WITHOUT ESOPHAGITIS Status: Chronic (6) Hypothyroidism Code(s): E03.9 - HYPOTHYROIDISM, UNSPECIFIED Status: Chronic (7) Irritable bowel syndrome Status: Chronic (8) Mesenteric lymphadenopathy Code(s): R59.0 - LOCALIZED ENLARGED LYMPH NODES Status: Chronic Comment: stable (9) Morbid obesity with BMI of 40.0-44.9, adult Code(s): E66.01 - MORBID (SEVERE) OBESITY DUE TO EXCESS CALORIES; Z68.41 - BODY MASS INDEX (BMI) 40.0-44.9, ADULT Status: Chronic - Plan cont current plan of care, plan discussed w/ family * tolerating diet * sbo resoled * stable for discharge * has GI follow up * medication reviewed as below * symptomatic treatment * see discharge summery from yesterday. Review of Systems - Review of Systems Eyes: negative: Pain, Vision Change, Conjunctivae Inflammation, Eyelid Inflammation, Redness, Other ENT: negative: Ear Pain, Ear Discharge, Nose Pain, Nose Discharge, Nose Congestion, Mouth Pain, Mouth Swelling, Throat Pain, Throat Swelling, Other Respiratory: negative: Cough, Dry, Shortness of Breath, Hemoptysis, SOB with Excertion, Pleuritic Pain, Sputum, Wheezing Cardiovascular: negative: chest pain, palpitations, orthopnea, paroxysmal nocturnal dyspnea, edema, light headedness, other Gastrointestinal: negative: Nausea, Vomiting, Abdominal Pain, Diarrhea, Constipation, Melena, Hematochezia, Other Genitourinary: negative: Dysuria, Frequency, Incontinence, Hematuria, Retention , Other Musculoskeletal: negative: Neck Pain, Shoulder Pain, Arm Pain, Back Pain, Hand Pain, Leg Pain, Foot Pain, Other Skin: negative: Rash, Lesions, Betito, Bruising, Other - Medications/Allergies Allergies/Adverse Reactions: Allergies Allergy/AdvReac Type Severity Reaction Status Date / Time No Known Allergies Allergy Verified 02/27/18 09:43 Medications: Current Medications Acetaminophen (Tylenol) 650 mg PO Q4H PRN PRN Reason: Headache/Fever or Pain Artificial Tears (Tears Naturale) 0 drop EA EYE PRN PRN PRN Reason: Dry Eyes Bisacodyl (Dulcolax) 10 mg [place] Q24H PRN PRN Reason: Constipation Dextrose/Water (Dextrose 50%) 25 gm SLOW IVP PRN PRN PRN Reason: Hypoglycemia Enoxaparin Sodium (Lovenox) 40 mg SC 0900 [facility] Last Admin: 03/02/18 09:20 Dose: 40 mg Escitalopram Oxalate (Lexapro) 10 mg PO DAILY [facility] Last Admin: 03/02/18 09:20 Dose: 10 mg Glucagon (Glucagon) 1 mg IM PRN PRN PRN Reason: Hypoglycemia Hydralazine HCl (Apresoline) 10 mg SLOW IVP Q4H PRN PRN Reason: Systolic BP > 180 Dextrose/Water (D5w) 1,000 mls @ 0 mls/hr IV .Q0M PRN; As Directed PRN Reason: Hypoglycemia Insulin Human Lispro (Humalog) 0 units SC .MODERATE SLIDING SC PRN PRN Reason: Moderate Correctional Scale Insulin Human Lispro (Humalog) 0 units SC .BEDTIME SLIDING SC PRN PRN Reason: Bedtime Correctional Scale Levothyroxine Sodium (Synthroid) 75 mcg PO 06 [facility] Last Admin: 03/02/18 06:29 Dose: 75 mcg Lorazepam (Ativan) 0.5 mg SLOW IVP Q6H PRN PRN Reason: Anxiety/Agitation Last Admin: 02/27/18 20:29 Dose: 0.5 mg Mineral Oil/White Petrolatum (Eucerin Cream) 0 gm TOP BIDPRN PRN PRN Reason: Dry Skin Morphine Sulfate (Morphine) 2 mg SLOW IVP Q2H PRN PRN Reason: Pain Last Admin: 02/27/18 19:35 Dose: 2 mg Ondansetron HCl (Zofran Odt) 4 mg SL Q6H PRN PRN Reason: Nausea/Vomiting Ondansetron HCl (Zofran) 4 mg IVP Q6H PRN PRN Reason: Nausea/Vomiting Last Admin: 02/27/18 20:36 Dose: 4 mg Pantoprazole Sodium (Protonix) 40 mg PO DAILY [facility] Last Admin: 03/02/18 09:20 Dose: 40 mg Phenol (Chloraseptic [place] 180 Ml Bot) 0 ml PO PRN PRN PRN Reason: Sore Throat Sodium Chloride ([place] Nasal [place] 0.65%) 0 ml EA NARE QIDPRN PRN PRN Reason: Nasal Congestion Sodium Chloride (Flush - Normal Saline) 10 ml IVF Q12HR [facility] Last Admin: 03/02/18 09:21 Dose: 10 ml Sodium Chloride (Flush - Normal Saline) 10 ml IVF PRN PRN PRN Reason: Saline Flush Last Admin: 02/27/18 19:36 Dose: 10 ml
--- NOTE | 2018-03-02 14:08 | ADD-DIS ---
ADDENDUM This patient was discharged yesterday, but we observed one more day to see how she tolerates her diet . She tolerated diet very well and this morning she was perfectly fine. The patient was seen and ex amined at bedside today. Please see my progress note from today for further details. There is no change in my discharge summary dictated yesterday.
== END 2018-03-02 11:52 | disposition home or self-care (01) | DRG 389 ==
LOC: ERS 01:33 → ONC 07:23
PROVIDERS: ADMIT Internal Medicine; ATTEND Internal Medicine
DX: K56.609 Unspecified intestinal obstruction, unspecified as to partial versus complete obstruction (principal); Z68.41 Body mass index [BMI] 40.0-44.9, adult; R59.0 Localized enlarged lymph nodes; E11.9 Type 2 diabetes mellitus without complications; E03.9 Hypothyroidism, unspecified; F32.9 Major depressive disorder, single episode, unspecified; F41.9 Anxiety disorder, unspecified; E66.01 Morbid (severe) obesity due to excess calories; K21.9 Gastro-esophageal reflux disease without esophagitis; L40.9 Psoriasis, unspecified; K58.9 Irritable bowel syndrome, unspecified; K76.0 Fatty (change of) liver, not elsewhere classified
CPT/HCPCS: 36415; 36416; 43752; 74177; 80053; 81003; 83690; 85025; 90471; 90670; 96374; 96376; A4216; C9113; G0009; J1650; J2060; J2270; J2405; Q0162

== ENCOUNTER 2018-06-13 15:36 | Outpatient (CLI) | payer BC ==
[2018-06-13 16:00] LABS: #Lymphocytes 0.3 thou/uL (1.20-3.40); #Monocytes 0.5 thou/uL (0.11-0.59); #Neutrophils 3.5 thou/uL (1.40-6.50); %Basophils 0.8 % (0.0-1.0); %Eosinophils 0.8 % (0.0-10.0); %Lymphocytes 7.4 % (21.0-51.0); %Neutrophils 79.1 % (42.0-75.0); Hemoglobin 15.1 g/dL (12.0-16.0); Mean Corpuscular HGB CONC 31.9 g/dL (32.0-36.0); Mean Corpuscular Hemoglobin 28.5 pg (27.0-31.0); Mean Corpuscular Volume 89.2 fL (78.0-98.0); Mean Platelet Volume 6.8 fL (7.4-10.4); Platelet Count 237 thou/uL (130-400); RBC Distribution Width 13.7 % (11.5-14.5); Red Blood Cell (RBC) Count 5.31 mill/uL (4.20-5.40); White Blood Cell (WBC) Count 4.4 thou/uL (4.8-10.8)
[2018-06-13 16:18] LABS: Anion Gap 10 mmol/L (10-20); BUN (Urea Nitrogen) 16 mg/dL (9.8-20.1); Calc. Creatinine Clearance 0 mL/min (70-130); Calcium 9.9 mg/dL (7.8-10.44); Carbon Dioxide 29 mmol/L (22-29); Chloride 101 mmol/L (98-107); Estimated GFR-MDRD 78; Glucose 135 mg/dL (70-105); Potassium 3.8 mmol/L (3.5-5.1); Sodium 136 mmol/L (136-145)
== END 2018-06-13 15:37 | disposition home or self-care (01) ==
LOC: LABBT 15:36
PROVIDERS: ATTEND Surgery
DX: Z01.812 Encounter for preprocedural laboratory examination (principal); C85.90 Non-Hodgkin lymphoma, unspecified, unspecified site
CPT/HCPCS: 80048; 85025

== ENCOUNTER 2018-06-19 07:18 | Day surgery (SDC) | payer BC ==
[2018-06-13 15:51] VITALS: BMI 41.2
[2018-06-19] MEDS ORDERED: Midazolam HCl 2 mg/2 ml Vial ONE (08:13)
[2018-06-19] MEDS ORDERED: CEFAZOLIN/Water 2 GM/20 ML SYRINGE ONE (08:32)
[2018-06-19] MEDS ORDERED: Propofol 1,000 MG/100 ML VIAL IV ONE (09:20)
[2018-06-19] MEDS ORDERED: Bupivacaine/Epinephrine 0.25% 30 ML VIAL ONE (09:21)
[2018-06-19] MEDS ORDERED: Lidocaine 2% PF Inj 2 ML VIAL ONE (09:21)
[2018-06-19] MEDS ORDERED: Dexamethasone 20 MG/5 ML VIAL ONE (12:55)
[2018-06-19] MEDS ORDERED: Ondansetron HCl/PF 4 MG/2 ML Vial ONE (12:55)
[2018-06-19] MEDS ORDERED: PROPOFOL 200 MG/20 ML VIAL ONE (12:55)
--- NOTE | 2018-06-19 13:29 | RAD ---
SEMI UPRIGHT PORTABLE CHEST ONE VIEW: History: 52-year-old female, status post Mediport placement. Comparison: 01-10-16 FINDINGS: Left subclavian catheter and injection port have been placed. No pneumothorax, pleural effusion, or o ther acute process. IMPRESSION: No acute intrathoracic disease. Left subclavian catheter and injection port placed without complicati on. POS: [facility]
--- NOTE | 2018-06-20 10:50 | PDOC.OP ---
Operative Note - Operative Note Operative Note: PROCEDURE: Left subclavian MediPort placement with fluoroscopic guidance SURGEON: Sun Cruz M.D. DATE OF PROCEDURE: 06/19/2018 PREOPERATIVE DIAGNOSIS: Lymphoma POSTOPERATIVE DIAGNOSIS: Lymphoma HISTORY: Patient is diagnosed with progressive low-grade lymphoma. Chemotherapy has been instituted but the patient has had significant local skin problems at peripheral IV sites. Her oncologist has requested MediPort placement for ongoing chemotherapy. OPERATIVE PROCEDURE IN DETAIL: After informed consent was obtained and appropriate preoperative antibiotics were administered, the patient was taken to the operating room and placed in supine position and monitored anesthesia care was administered. The patient was then placed in Trendelenburg position and the subclavian vein accessed easily with excellent flow of dark venous non- pulsatile blood. A wire threaded easily and was confirmed to be in the superior vena cava by fluoroscopy. Additional local anesthesia was infused to the skin and subcutaneous tissues lateral and inferior to the access site. The skin incision was extended from the wire laterally and a subcutaneous pocket developed inferiorly. A Mediport was obtained and confirmed to fit in the subcutaneous pocket. This was secured inferiorly to the pectoralis fascia with a Prolene suture, which was clamped, but not tied. The dilator and sheath were then placed over the wire and the dilator and wire removed leaving the sheath in place. The clamped MediPort tubing was tunneled through the sheath, which was then split and removed leaving the MediPort tubing in place. The tubing was adjusted until the tip was confirmed by fluoroscopy to be in the superior vena cava just above the atrium. The tubing was clamped at the skin level and cut and the tubing secured to the port, which was then placed in the subcutaneous pocket. The previously placed suture was secured and two additional sutures were placed to fix the port in place within the pocket. The port was aspirated with the Bishop needle and had excellent flow of dark venous non-pulsatile blood and easily flushed without resistance. The subcutaneous tissues were closed with a running Monocryl suture, following which the skin was closed with a running subcuticular Monocryl suture. Dermabond dressings were placed and the hub was again accessed through the skin and confirmed to easily aspirate and easily flush. The course of the catheter was confirmed by fluoroscopy to be smooth with the tip appropriately located in the superior vena cava. The patient was taken her back to the day stay unit in good condition. Estimated blood loss was minimal. There were no complications. There were no specimens.
== END 2018-06-19 12:40 | disposition home or self-care (01) ==
LOC: SDC 07:18
PROVIDERS: ATTEND Surgery
PROC: 02HV33Z Insertion of Infusion Device into Superior Vena Cava, Percutaneous Approach (ICD-10-PCS; principal; 2018-06-19)
DX: C85.90 Non-Hodgkin lymphoma, unspecified, unspecified site (principal); E03.9 Hypothyroidism, unspecified; Z79.899 Other long term (current) drug therapy
CPT/HCPCS: 71045; C1788; J1100; J1642; J2250; J2405; J2704

== ENCOUNTER 2018-07-12 07:29 | Outpatient (CLI) | payer BC ==
--- NOTE | 2018-07-12 08:47 | CT ---
CT OF THE ABDOMEN AND PELVIS WITH IV CONTRAST: INDICATION: History of grade II follicular fullness status post 3 cycles of chemotherapy. COMPARISON: Prior CT of the abdomen and pelvis dated 02/27/2018. CONTRAST: 70 cc of Isovue 370. FINDINGS: The prominent mesenteric lymphadenopathy has all decreased in prominence. The index node within the central mesentery previously seen measuring 3.5 cm now measures 1.9 cm. The previously seen 2.3 cm l ymph node on image 39 of series 2 on the 02/27/2018 examination now measures 1.1 cm. There is edema se en within the mesenteric root and within the leaves of the mesentery. No drainable fluid collection is evident. There is fatty infiltration of the liver. There is a moderate-size hiatal hernia. The gallbladder i s surgically absent. There is a stable left renal cyst. The spleen is normal in size. Pancreas and adrenal glands are normal-appearing. Small and large bowel reveal no acute abnormality. There is s cattered colonic diverticulosis. Bladder is partially decompressed. There is scattered degenerative and osteoarthritic change. IMPRESSION: 1. Findings consistent with response to therapy. There has been significant reduction in size of th e numerous enlarged mesenteric lymph nodes when compared to the most recent examination dated 8. 2. Persistent fatty infiltration of the liver. 3. Stable left renal cyst. 4. Prior cholecystectomy. 5. Colonic diverticulosis. POS: [facility]
[2018-07-12] MEDS ORDERED: ISOVUE-370 76%-LOCM 1 ML ONE (13:55)
== END 2018-07-12 07:30 | disposition home or self-care (01) ==
LOC: BICCT 07:29
PROVIDERS: ATTEND Internal Medicine Hematology & Oncology
DX: C82.13 Follicular lymphoma grade II, intra-abdominal lymph nodes (principal); N28.1 Cyst of kidney, acquired; K76.0 Fatty (change of) liver, not elsewhere classified; K57.30 Diverticulosis of large intestine without perforation or abscess without bleeding; Z90.49 Acquired absence of other specified parts of digestive tract
CPT/HCPCS: 74177

== ENCOUNTER 2018-09-02 10:51 | Inpatient (IN) | payer BC ==
[2018-09-02 11:49] LABS: Band 22 % (5-11); Hemoglobin 14.4 g/dL (12.0-16.0); Lymphocytes 6 % (21-51); MDiff Complete? YES; Mean Corpuscular Hemoglobin 29.9 pg (27.0-31.0); Mean Corpuscular Volume 90.5 fL (78.0-98.0); Mean Platelet Volume 7.9 fL (7.4-10.4); Monocytes 6 % (0-10); Neutrophil 66 % (42-75); Platelet Count 164 thou/uL (130-400); RBC Distribution Width 14.3 % (11.5-14.5); Red Blood Cell (RBC) Count 4.83 mill/uL (4.20-5.40)
[2018-09-02 11:53] LABS: ALT (SGPT) 48 U/L (8-55); AST (SGOT) 36 U/L (5-34); Albumin 3.7 g/dL (3.5-5.0); Alkaline Phosphatase 280 U/L (40-150); Anion Gap 17 mmol/L (10-20); BUN (Urea Nitrogen) 9 mg/dL (9.8-20.1); Bilirubin, Total 0.5 mg/dL (0.2-1.2); Calc. Creatinine Clearance 0 mL/min (70-130); Calcium 9.5 mg/dL (7.8-10.44); Carbon Dioxide 22 mmol/L (22-29); Chloride 97 mmol/L (98-107); Estimated GFR-MDRD 54; Globulin 3.7 g/dL (2.4-3.5); Potassium 3.3 mmol/L (3.5-5.1); Protein, Total 7.4 g/dL (6.0-8.3); Sodium 133 mmol/L (136-145)
[2018-09-02 12:00] LABS: Glucose 605 mg/dL (70-105)
[2018-09-02] MEDS ORDERED: Insulin Regular 300 UNITS/3 ML VIAL ONE (12:37)
[2018-09-02] MEDS ORDERED: Metoclopramide HCl 10 MG/2 ML VIAL ONE (12:37)
[2018-09-02] MEDS ORDERED: Ondansetron PF 4 MG/2 ML Vial ONE (12:37)
[2018-09-02 12:51] LABS: Lipase 25 U/L (8-78); Phosphorus 2.5 mg/dL (2.3-4.7)
[2018-09-02 13:07] LABS: Bilirubin Negative (Negative); Blood, Urine Negative (Negative); Clarity CLEAR (Clear); Glucose, Urine (Dipstick) >=1000 mg/dL (Negative); Leukocyte Negative (Negative); Nitrite Negative (Negative); Protein, Urine (Dipstick) Negative (Neg-Trace); Specific Gravity, Urine 1.033 (1.002-1.036); Urobilinogen 0.2 mg/dL (0.2-1.0); pH, Urine 6.5 (5.0-9.0)
[2018-09-02 13:07] LABS: Base Excess-Venous 3.1 mmol/L (0 (+/- 2.5)); Bicarbonate (HCO3v) 25.6 mmol/L (22.0-29.0); CO2 Tension (PvCO2) 32.3 mmHg (41.0-51.0); Calcium, Ionized 1.01 mmol/L (1.12-1.32); Hemoglobin - Calc 15.2 g/dL (12.0-18.0); O2 Tension (PvO2) 51.1 mmHg (35.0-45.0); Potassium 2.9 mmol/L (3.4-4.7); T. Carbon Dioxide 26.6 mmol/L (1.0-85.0); pH (Venous) 7.506 (7.35-7.45); vO2 Saturation-calc 89.4 % (94-98)
[2018-09-02] MEDS ORDERED: Cefepime 2 GM VIAL ONE (14:09)
[2018-09-02] MEDS ORDERED: cefTRIAXone\\ROCEPHIN 1 GM VIAL ONE (14:14)
[2018-09-02] MEDS ORDERED: Potassium Chloride 20 MEQ TAB ONE (15:34)
--- NOTE | 2018-09-02 15:36 | RAD ---
CHEST 1 VIEW: Date: 09/02/18 HISTORY: Nausea and vomiting. COMPARISON: Radiograph from 2018. FINDINGS: There has been some retraction of the port catheter with the tip projecting over the azygos vein. Rem ainder of lungs are clear. No pneumothorax. IMPRESSION: Some minimal retraction of the port catheter at the venotomy site with tip at the level of the azygos vein. POS: [facility]
[2018-09-02] MEDS ORDERED: cloNIDine 0.1 MG TAB PO PRN (16:00)
[2018-09-02] MEDS ORDERED: Ondansetron PF 4 MG/2 ML Vial IVP PRN (16:00)
[2018-09-02] MEDS ORDERED: Acetaminophen 650 MG Suppository PR PRN (16:00)
[2018-09-02] MEDS ORDERED: Diabetic Tussin 200 MG/10 ML UDCUP PO PRN (16:00)
[2018-09-02] MEDS ORDERED: Benzonatate 100 MG CAP PO PRN (16:00)
[2018-09-02] MEDS ORDERED: Ondansetron ODT 4 MG TAB PO PRN (16:00)
[2018-09-02] MEDS ORDERED: Bisacodyl 10 MG SUPP PR PRN (16:00)
[2018-09-02] MEDS ORDERED: Nitroglycerin 0.4 MG TAB (25 Tab Bottle) SL PRN (16:00)
[2018-09-02] MEDS ORDERED: Bisacodyl 5 MG TAB PO PRN (16:00)
[2018-09-02] MEDS ORDERED: hydrALAZINE 20 MG/ML VIAL SLOW IVP PRN (16:00)
[2018-09-02] MEDS ORDERED: HYDROcodone/Acetaminophen 5/325 mg Tablet PO PRN ×2 (16:00)
[2018-09-02] MEDS ORDERED: Calcium Carbonate 500 MG ChewTAB PO PRN (16:00)
[2018-09-02] MEDS ORDERED: Acetaminophen 325 MG TAB PO PRN (16:00)
[2018-09-02] MEDS ORDERED: Senokot S 8.6-50 MG TAB PO PRN (16:00)
[2018-09-02] MEDS ORDERED: Dextrose 50% Abboject 50 ML SYRINGE SLOW IVP PRN (16:08)
[2018-09-02] MEDS ORDERED: Dextrose 5% in Water 1,000 ML IV PRN (16:08)
[2018-09-02] MEDS ORDERED: HumaLOG 300 UNITS/3 ML VIAL SC PRN ×2 (16:08)
[2018-09-02] MEDS ORDERED: Promethazine HCl 25 MG/ML VIAL IM/IV PRN (16:11)
[2018-09-02 17:13] LABS: Lactic Acid 1.5 mmol/L (0.5-2.2)
--- NOTE | 2018-09-02 17:46 | HP ---
PRIMARY CARE PHYSICIAN: Steven Kessler MD. PRIMARY ONCOLOGIST: Dr. Hernandez. CHIEF COMPLAINT: Persistent nausea and vomiting with low-grade fever, mild abdominal pain, and some cough. HISTORY OF PRESENTING ILLNESS: Ms. Kyle is a very pleasant 53-year-old female with past medical history of Hodgkin lymphoma, currently undergoing chemotherapy, who presented to the ER with the above-mentioned complaint. History is mainly obtained by the patient herself and electronic medical records have been reviewed. Ms. Kyle reports that her last chemotherapy session was just last week. She has been fighting the nausea and vomiting for the last 3 days. She has been visiting in the hospital when her daughter had a child. Otherwise, she denies any sick contacts. She has noticed that she has been having some low-grade fever on and off for the last few days with some mild cough. Denies any shortness of breath or sore throat. She denies any abdominal pain or loose stools. She is somewhat constipated. Denies any dysuria, frequency, or urgency. Upon presentation to the emergency room, she was afebrile with temperature of 98.4, somewhat tachycardic with heart rate of 101. Her initial examination included a chest x-ray, which was unremarkable. She was found to have a blood sugar of 605 initially without any anion gap. Her lactic acid was normal at 2.2; however, she had leukocytosis with WBCs of 12.0 with 22% bands. She was given IV insulin as well as potassium as her potassium is low at 3.3, along with cefepime and is now being admitted to medical floor for intractable nausea, vomiting, as well as rule out sepsis. PAST MEDICAL HISTORY: 1. Low-grade B-cell lymphoma. 2. Hypothyroidism. 3. History of H pylori gastritis in 2012. 4. Diverticulitis and esophagitis. 5. Hyperthyroidism. 6. Anxiety. 7. History of mesenteric lymphadenopathy. PAST SURGICAL HISTORY: 1. Hysterectomy. 2. Cholecystectomy. FAMILY HISTORY: Father is , was diagnosed with heart disease. Mother has had hypertension, dyslipidemia, coronary artery disease, and is alive and present at bedside. One of her brothers was diagnosed with diabetes. SOCIAL HISTORY: No history of drug, tobacco, or alcohol abuse. She is and lives with her family. ALLERGIES: NO KNOWN MEDICATION ALLERGIES. CURRENT MEDICATIONS: 1. Farxiga 5 mg daily. 2. Zofran p.r.n. 3. Protonix 40 mg daily. 4. Levothyroxine 75 mcg daily. CODE STATUS: Full code, discussed with the patient. REVIEW OF SYSTEMS: A 12-point review of system is done and is negative except those mentioned in history and physical. LABORATORY DATA: CBC shows WBCs of 12.0 with 22% bands with normal neutrophils. VBG shows pH of 7.5. Serum chemistry shows sodium of 133, potassium 3.3, bicarb 22, normal anion gap at 17. Blood sugar 605, which has improved to a blood sugar of 291. Lactic acid normal at 2.2. Lipase normal at 25. AST and ALT are unremarkable. Alkaline phosphatase elevated to 280, which seems to be chronic. Urinalysis showed glucosuria and ketonuria. Chest x-ray by my review, does not have any evidence to suggest infiltrates. PHYSICAL EXAMINATION: VITAL SIGNS: Upon presentation, blood pressure 144/77, pulse of 101, respirations 18, saturating 95% on room air, and temperature 98.4. T-max is 100.7 in the emergency room. GENERAL: No acute distress. Awake, alert, and oriented x3. Family is at bedside. HEENT: Mucous membrane is moist and pink. Pupils are equal and reactive to light and accommodation. No scleral icterus. No oropharyngeal exudate or erythema. NECK: Supple without any lymphadenopathy, JVD, or bruit. CHEST: Clear to auscultation without any wheezing, rales, or rhonchi. HEART: Rate and rhythm are regular without any murmurs, rubs, or gallops. ABDOMEN: Obese, soft, nontender, nondistended. No guarding, rebound, or rigidity. No suprapubic tenderness. No CVA tenderness. EXTREMITIES: Free of any cyanosis, clubbing, or edema. NEUROLOGIC: Nonfocal. SKIN: Free of any rashes or bruises. PSYCHIATRIC: Normal affect. IMPRESSION AND PLAN: 1. Intractable nausea and vomiting. The etiology is unclear at this time. The patient presents with severe dehydration. She will be treated symptomatically and supportively. We will send Clostridium difficile antigen and toxin testing, given the fact that she is on chemotherapy. Gentle IV fluids will be started. 2. Hyperglycemia. The patient's blood sugar is much improved, and most likely, the hyperglycemia is secondary to severe dehydration. There is no evidence to suggest diabetic ketoacidosis. We will put her insulin sliding scale for now and I have instructed her to resume her Farxiga for now. Accu-Cheks before meals and at bedtime will be instituted as well. 3. Hypokalemia. Start her on normal saline with potassium added as her potassium levels are even lower after insulin institution at 2.9. Repeat labs in the morning. 4. Leukocytosis with left shift. Given the patient's chemotherapeutic status and constitutional symptoms, she will be treated with empiric broad-spectrum IV antibiotics. Urine culture and blood cultures have been obtained in the emergency room. We will add blood culture from her [facility] as well. We will also add Clostridium difficile testing. We will request a courtesy consultation with her Oncology Team as well. Antibiotics can be discontinued if her cultures remain negative. Suspect viral bronchitis versus viral gastroenteritis until bacterial infection is ruled in. 5. Hodgkin lymphoma. The patient is status post treatment of lymphoma and has finished her chemotherapy. She will continue to follow up in outpatient setting. 6. Diabetes mellitus. As above, start her on insulin sliding scale and resume Farxiga. 7. Code status, full code, discussed with the patient. 8. Deep venous thrombosis and gastrointestinal prophylaxis and p.r.n. medications. DISPOSITION: Ms. Kyle is currently being admitted to medical floor for intractable nausea, vomiting, hyperglycemia, and rule out sepsis. Estimated length of stay at this time is at least 2 to 3 midnights. Further management will depend upon her clinical course. Job ID: [id number]
[2018-09-02 17:59] VITALS: BMI 39.7
[2018-09-02] MEDS: Vancomycin HCl 1.5 GM in Sodium Chloride 0.9% 250 ML 300 ML IVPB SCH (20:51)
[2018-09-02] MEDS: Famotidine 20 MG TAB PO SCH (20:55)
[2018-09-02] MEDS ORDERED: Vancomycin HCl 1 GM in Premix Bag 1 BAG IVPB SCH (21:00)
[2018-09-02] MEDS: 1/2 NS w/KCL 20 mEq 1,000 ML IV SCH (21:25)
[2018-09-03] MEDS: Cefepime 1 GM in Sodium Chloride 0.9% 100 ML IVPB SCH ×2 (02:43→15:33)
[2018-09-03] MEDS: 1/2 NS w/KCL 20 mEq 1,000 ML IV SCH ×2 (02:44→09:50)
[2018-09-03 08:30] LABS: Anion Gap 13 mmol/L (10-20); BUN (Urea Nitrogen) 7 mg/dL (9.8-20.1); Calc. Creatinine Clearance 138 mL/min (70-130); Calcium 8.3 mg/dL (7.8-10.44); Carbon Dioxide 22 mmol/L (22-29); Chloride 105 mmol/L (98-107); Estimated GFR-MDRD Greater than 90; Glucose 130 mg/dL (70-105); Potassium 3.3 mmol/L (3.5-5.1); Sodium 137 mmol/L (136-145)
[2018-09-03 09:00] LABS: Hemoglobin 11.8 g/dL (12.0-16.0); Mean Corpuscular HGB CONC 32.4 g/dL (32.0-36.0); Mean Corpuscular Hemoglobin 29.3 pg (27.0-31.0); Mean Corpuscular Volume 90.5 fL (78.0-98.0); Mean Platelet Volume 8.2 fL (7.4-10.4); Platelet Count 160 thou/uL (130-400); RBC Distribution Width 14.5 % (11.5-14.5); Red Blood Cell (RBC) Count 4.02 mill/uL (4.20-5.40)
[2018-09-03] MEDS ORDERED: Enoxaparin Sodium 30 MG/0.3 ML SYRINGE SC SCH (09:00)
[2018-09-03 09:37] LABS: Band 25 % (5-11); Lymphocytes 10 % (21-51); MDiff Complete? YES; Monocytes 16 % (0-10); Neutrophil 49 % (42-75); PLT Morphology Comment Appears Adequate; Polychromasia SLIGHT = 2-3 cells (100X) (0-2/hpf); Toxic Granulation SLIGHT
[2018-09-03] MEDS: Famotidine 20 MG TAB PO SCH (09:46)
[2018-09-03] MEDS: Vancomycin HCl 1.5 GM in Sodium Chloride 0.9% 250 ML 300 ML IVPB SCH (09:47)
--- NOTE | 2018-09-03 12:02 | DIS ---
DATE OF ADMISSION: 09/02/2018 DATE OF DISCHARGE: 09/03/2018 PRIMARY CARE PHYSICIAN: Steven Kessler MD DISCHARGE DIAGNOSES: 1. Moderate dehydration. 2. Intractable nausea and vomiting. 3. Non-Hodgkin's lymphoma. 4. Receiving chemotherapy. CONSULTATIONS: None. PROCEDURE: None. HISTORY AND PHYSICAL: Ms. Kyle is a 53-year-old female, status post chemo about 5 days prior to admission. She had intractable nausea and vomiting, was dehydrated for 3 days prior to admission and presented to the emergency department. There, she was found to be dehydrated and hypokalemic. We were called for admission. HOSPITAL COURSE: The patient was seen and examined by Dr. Burkett and placed in inpatient status. She was hydrated overnight. She was given antiemetics. By this morning, she got little nauseated with her morning medicines, but she will be able to tolerate dinner and breakfast this morning without any difficulties. She tolerated the lunch today and was stable for discharge with outpatient followup. PHYSICAL EXAMINATION: The patient was seen and examined on the day of discharge. Discharge plan and disposition were discussed with the patient [id number] with the family at the bedside. DISCHARGE MEDICATIONS: Home medications all to continue, none to discontinue. Please see medicine reconciliation sheet. DISCHARGE CONDITION: Stable. DISPOSITION: Discharged home via private vehicle. FOLLOWUP APPOINTMENTS: 1. Dr. Steven Kessler within a week. 2. Dr. Hernandez per her clinic. DISCHARGE ACTIVITY: As tolerated. DISCHARGE DIET: Heart healthy diet recommended. Job ID: [id number]
[2018-09-03] MEDS: Potassium Chloride 20 MEQ TAB PO SCH ×2 (12:29→15:26)
[2018-09-03 12:48] VITALS: BP 110/63; TEMP 98.6
== END 2018-09-03 17:52 | disposition home or self-care (01) | DRG 641 ==
LOC: ERS 10:51 → ERHOLD 15:15 → T4-A 17:57 → ONC 19:37
PROVIDERS: ADMIT Internal Medicine; ATTEND Internal Medicine
DX: E86.0 Dehydration (principal); C85.90 Non-Hodgkin lymphoma, unspecified, unspecified site; R11.2 Nausea with vomiting, unspecified; E87.6 Hypokalemia; R50.9 Fever, unspecified; E03.9 Hypothyroidism, unspecified; F41.9 Anxiety disorder, unspecified; D72.829 Elevated white blood cell count, unspecified; E11.65 Type 2 diabetes mellitus with hyperglycemia; K21.9 Gastro-esophageal reflux disease without esophagitis; Z90.710 Acquired absence of both cervix and uterus; Z90.49 Acquired absence of other specified parts of digestive tract
CPT/HCPCS: 36415; 36416; 71045; 80048; 80053; 81003; 82330; 82803; 83605; 83690; 83735; 84100; 85025; 86850; 86900; 86901; 87040; 87077; 87086; 87804; 94760; 96365; 96367; 96375; J0692; J0696; J1642; J1650; J1815; J2405; J2765; J3370; J7050

== ENCOUNTER 2018-10-04 07:27 | Outpatient (CLI) | payer BC ==
--- NOTE | 2018-10-04 09:28 | CT ---
CT CHEST WITH CONTRAST CT ABDOMEN WITH CONTRAST CT PELVIS WITH CONTRAST: Date: 10/04/18 HISTORY: C82.13 follicular lymphoma Grade II. COMPARISON: Multiple prior examinations, most recent 07/12/18. FINDINGS: Lungs are clear. No pneumothorax. No effusion. No suspicious pulmonary nodule. No consolidation. There is a central venous catheter in place with tip at the superior SVC in good position. No mediastinal adenopathy. Thyroid is unremarkable. No pericardial effusion. Moderate size sliding hiatal hernia. Thoracic aortic size is normal, as well as pulmonary trunk size. No axillary adenopathy. No supraclav icular adenopathy. There is diffuse hepatic steatosis. There has been interval size decrease of the proximal small bowel mesenteric lymph nodes with the ind ex lesion as described measuring 1.2 cm, previously 1.9 cm axial image 68. Index proximal small bowel lymph node axial image 75 continues to measure approximately 1.1 cm, unchanged. There is small volume fluid within the mesenteric root, similar to the comparison examination, as wel l as infiltration of the fat. No new or enlarging lymph nodes relative to the comparison examination. No retroperitoneal periaortic adenopathy. No iliac adenopathy. Mild diverticular disease of the sigmoid colon without active current inflammation. Hypodensities of both kidneys are similar, suggesting cysts. There is sclerosis of the pubic symphysis. IMPRESSION: Continued interval response to therapy with RECIST criteria of partial response. No new or enlarging adenopathy. POS: [facility]
[2018-10-04] MEDS ORDERED: ISOVUE-370 76%-LOCM 1 ML ONE (10:30)
== END 2018-10-04 07:28 | disposition home or self-care (01) ==
LOC: BICCT 07:27
PROVIDERS: ATTEND Internal Medicine Hematology & Oncology
DX: C82.13 Follicular lymphoma grade II, intra-abdominal lymph nodes (principal); I88.0 Nonspecific mesenteric lymphadenitis
CPT/HCPCS: 71260; 74177; Q9966

== ENCOUNTER 2019-04-05 07:29 | Outpatient (CLI) | payer BC ==
--- NOTE | 2019-04-05 11:18 | CT ---
CHEST CT WITH CONTRAST ABDOMEN CT WITH CONTRAST PELVIC CT WITH CONTRAST: HISTORY: Grade II follicular lymphoma. The patient is under chemotherapy. The patient had intraabdominal lym ph nodes. COMPARISON: 10/04/2018. FINDINGS: CHEST CT: Trachea and central bronchi are patent. No masses or consolidation. Minimal dependent atelectatic c hanges in the lung bases. No pleural effusion or pneumothorax. RIGHT LUNG: No masses or nodules. LEFT LUNG: No masses or nodules. No evidence of mediastinal mass, lymphadenopathy, or hematoma. Heart size is within normal limits. No significant pericardial fluid. No evidence of axillary lymphadenopathy. ABDOMEN CT: Gallbladder is surgically absent. Diffuse hypoattenuation of the liver, compatible with hepatic stea tosis. No enhancing masses. Spleen, pancreas, and the adrenal glands have appropriate attenuation a nd enhancement. Stable hypodensity in the mid left renal cortex. Symmetric enhancement of the kidneys. Bilaterally, no obstructive uropathy. Gastric mucosa, duodenum, and multiple normal-caliber small bowel lops are identified. Ileocecal daysi ction is normal. Diverticula in the left hemicolon. No diverticulitis. Redemonstration of stranding involving the central abdominal mesentery with extension of edema expand ing into the left abdominal mesentery. There are enlarged mesenteric lymph nodes. The overall numbe r of enlarged lymph nodes appears to have slightly decreased when compared to the previous examinatio n. There is an intraabdominal lymph node measuring 0.8 x 2.3 cm (axial image #66). This lymph node was previously reported to be 2.4 x 1.2 cm (previously axial image #68). There is slight interval decrea se in size. Index lymph node previously was reported to be 1.1 cm (axial image #75). Currently, thi s index lymph node measures 1.1 cm and is unchanged (axial image #67). CT PELVIS: No mass, lymphadenopathy, free air, or free fluid. OSSEOUS STRUCTURES: There are no lytic or blastic lesions within the osseous structures. IMPRESSION: Continued interval response to therapy with RECIST criteria of partial response. No new or enlarged lymph nodes. POS: [facility]
[2019-04-05] MEDS ORDERED: ISOVUE-370 76%-LOCM 1 ML ONE (15:41)
== END 2019-04-05 07:30 | disposition home or self-care (01) ==
LOC: BICCT 07:29
PROVIDERS: ATTEND Internal Medicine Hematology & Oncology
DX: C82.13 Follicular lymphoma grade II, intra-abdominal lymph nodes (principal); I88.0 Nonspecific mesenteric lymphadenitis
CPT/HCPCS: 71260; 74177

== ENCOUNTER 2019-09-27 07:36 | Outpatient (CLI) | payer BC ==
--- NOTE | 2019-09-27 10:25 | CT ---
CT THORAX WITH CONTRAST CT ABDOMEN WITH CONTRAST CT PELVIS WITH CONTRAST: DATE: 09/27/2019. HISTORY: A 54-year-old female followup follicular lymphoma grade II, intraabdominal lymph nodes ICD-10: C82.13 . Nonspecific mesenteric lymphadenopathy ICD-10: I88.0. TECHNIQUE: IV iodinated contrast media: administered. Oral contrast media: administered. Single phase scans of thorax, abdomen, and pelvis. COMPARISON: 04/05/2019. FINDINGS: Thorax: Lungs are essentially clear. No pleural effusion, pneumothorax, cardiomegaly, mediastinal lymphadeno willis, hilar lymphadenopathy, or thoracic aortic aneurysm. Small sliding hiatal hernia. No destructive osseous lesion. No interval change. Abdomen: Probable fatty liver. No focal hepatic lesion. Cholecystectomy clips. Small left renal lower pole cyst. Otherwise, essentially normal kidneys, adrenals, abdominal aorta, spleen, and pancreas. No sm all bowel dilation, ascites, or pneumoperitoneum. No shruti hepatis or retroperitoneal lymphadenopath y. Shahana mesentery surrounding prominent mesenteric lymph nodes as previously described. The previously described 0.8 x 3 cm mesenteric lymph node (previous image #66) has shrunk such that i t is no longer identifiable and distinguishable from the several additional mildly enlarged mesenteri c lymph nodes nearby. The previously mentioned 1.1 cm index lymph node (prior axial image #67) has also shrunk such that it is also no longer identifiable and distinguishable. There are a few mesenteric lymph nodes that were smaller than the ones previously mentioned, and ther efore previously not described or measured, which are unchanged (for example a 0.6 x 0.6 cm lymph nod e to the left of midline current image 72 of 124, series 2). Located more posteriorly near the root of the mesentery, approximately 2.5 to 3 cm anterior and to th e left of the abdominal aorta, there is an ill-defined soft tissue attenuation lesion measuring appro ximately 2 x 2 x 1.5 cm (current axial image 75 of 124, series 2; coronal image 27 of 61, series 5 an d sagittal image 34 of 68, series 6). It has shaggy borders, and appears different from the well-def ined discrete lymph nodes that have been thus far followed. This was less conspicuous on previous CT 's because it was more amorphous and there were similar such patchy densities scattered throughout th e shahana mesentery. It appears more discrete and perhaps slightly larger and of higher density now th an previously, as the rest of the similar-appearing lesions scattered elsewhere within the shahana mese ntery region have regressed or resolved. However, the increased attenuation suggesting enhancement, is of slight concern. Pelvis: No iliac chain lymphadenopathy. No free fluid. Normal urinary bladder. No colonic diverticulitis. No destructive osseous pelvic lesion. IMPRESSION: 1. Questionably mixed response to therapy, confounding the classification into the RECIST criteria. 2. On the one hand, there has been reduction or resolution in index lesion and target lesion of the previously described mesenteric lymph nodes; currently no longer identifiable. This would indicate p artial response classification. 3. On the other hand, previously scattered, ill-defined patchy densities within the shahana mesentery have peripherally resolved, while a more central component has become more discrete, with increased a ttenuation, and is slightly larger. Perhaps this represents mesenteric tissues of post treatment temo nges of lymphoma. A PET scan would be able to distinguish that from active lymphoma. 4. The shahana mesentery and the several slightly enlarged mesenteric lymph nodes within them, other t mcbride the ones that have resolved, are similar to 04/05/2019 (but definitely improved compared to 9). JAS Lora POS: [facility]
[2019-09-27] MEDS ORDERED: Iopamidol-370 76% 500 ML 1 ML ONE (14:21)
== END 2019-09-27 07:37 | disposition home or self-care (01) ==
LOC: BICCT 07:36
PROVIDERS: ATTEND Internal Medicine Hematology & Oncology
DX: C82.13 Follicular lymphoma grade II, intra-abdominal lymph nodes (principal); R59.0 Localized enlarged lymph nodes
CPT/HCPCS: 71260; 74177

== ENCOUNTER 2020-03-13 08:29 | Outpatient (CLI) | payer BC ==
--- NOTE | 2020-03-13 08:50 | ULT ---
ULTRASOUND ABDOMEN LIMITED: (RIGHT UPPER QUADRANT) DATE: 03/13/2020 HISTORY: 54-year-old female with abdominal pain and elevated serum alkaline phosphatase R 74.8 FINDINGS: Gallbladder: Surgically absent. Liver: Diffusely increased echogenicity, consistent with fatty liver. Common duct caliber:8 mm. Mildly dilated probably because of status post cholecystectomy. Right kidney: No hydronephrosis. Pancreas: Nonspecific sonographic appearance. IMPRESSION: 1) Hepatic steatosis. 2) status post cholecystectomy.
== END 2020-03-13 08:30 | disposition home or self-care (01) ==
LOC: BICULT 08:29
PROVIDERS: ATTEND Internal Medicine Gastroenterology
DX: K21.9 Gastro-esophageal reflux disease without esophagitis (principal); R74.8 Abnormal levels of other serum enzymes; R13.13 Dysphagia, pharyngeal phase; K92.1 Melena; L30.9 Dermatitis, unspecified; L40.9 Psoriasis, unspecified; K76.0 Fatty (change of) liver, not elsewhere classified; Z90.49 Acquired absence of other specified parts of digestive tract
CPT/HCPCS: 76705

== ENCOUNTER 2020-05-12 07:53 | Outpatient (CLI) | payer BC ==
--- NOTE | 2020-05-12 12:09 | CT ---
CT CHEST AND ABDOMEN AND PELVIS WITH IV CONTRAST: Oral contrast was given. Multiplanar reconstruction. INDICATION: Follicular lymphoma grade II. Intraabdominal lymph nodes. COMPARISON: Comparison is made to prior CT chest, abdomen, and pelvis dated 09/27/2019. FINDINGS: CT CHEST: Lung rodriguez remain clear. No infiltrate, effusion, or mass lesion. The mediastinum is unremarkable. No adenopathy. No axillary adenopathy. There is a moderate-sized fixed sliding diaphragmatic reggie ia which was described previously. Osseous structures unremarkable. IMPRESSION: Fixed diaphragmatic hernia. Chest otherwise unremarkable and unchanged. CT ABDOMEN AND PELVIS: The liver, spleen, and pancreas appear unremarkable and stable. Post cholecystectomy change. fixed sliding diaphragmatic hernia is seen as described on chest CT. The adrenal glands and kidneys are unremarkable. The renal cystic lesions appear stable. Small bowel loops are normal caliber. The colon is unremarkable with scattered diverticula. Aorta n ormal caliber. There is haziness at the root of the mesentery which was previously described as stephanie mesentery. T his has a similar appearance. However, the previously noted adenopathy within this stephanie mesentery h as significantly regressed. A 2 cm density described previously has regressed and there is a residua l focal density measuring in the 7 mm range at this site. There are a few other scattered subcentime ter nodes within this stephanie mesentery that appear stable. No significant retroperitoneal or paraaort ic lymph nodes. Images through the pelvis show no significant iliac chain lymph nodes or pelvic lymph nodes. The lolly dder is contracted. The patient appears to be post hysterectomy. The osseous structures are unremar kable. Vertebral bodies maintain height and alignment. There is a disk bulge at L5-S1 abutting the thecal sac. IMPRESSION: Stephanie mesentery is again seen at the root of the mesentery. A few scattered nonspecific lymph nodes are again seen within this stephanie mesentery. However, a 2 cm node noted previously has significantly regressed. No other adenopathy identified. POS: [facility]
[2020-05-12] MEDS ORDERED: Iopamidol-370 76% 500 ML 1 ML ONE (14:56)
== END 2020-05-12 07:54 | disposition home or self-care (01) ==
LOC: BICCT 07:53
PROVIDERS: ATTEND Internal Medicine Hematology & Oncology
DX: C82.13 Follicular lymphoma grade II, intra-abdominal lymph nodes (principal); I88.0 Nonspecific mesenteric lymphadenitis
CPT/HCPCS: 71260; 74177; Q9967

== ENCOUNTER 2020-10-20 10:20 | Outpatient (CLI) | payer BC ==
--- NOTE | 2020-10-20 10:42 | RAD ---
EXAM: Chest PA and lateral: HISTORY: Cough, prior Covid positive in July, shortness of breath COMPARISON: 01/10/2016 FINDINGS: Left subclavian catheter and injection port with tip at the left innominate vein-superior vena cava j unction region. Heart size:Within normal limits. Lungs:Increased bronchovascular markings bilaterally but overall stable. No evidence for overt pneumonia. No significant pleural effusion. IMPRESSION: No significant acute intrathoracic disease. If patient has persistent nonresolving symptoms, short-term follow-up study should be considered.
== END 2020-10-20 10:21 | disposition home or self-care (01) ==
LOC: BICRAD 10:20
PROVIDERS: ATTEND Family Medicine
DX: R05 Cough (principal); Z86.16 Personal history of COVID-19
CPT/HCPCS: 71046

== ENCOUNTER 2020-11-10 07:51 | Outpatient (CLI) | payer BC ==
[2020-11-10] MEDS ORDERED: Iopamidol-370 76% 500 ML 1 ML ONE (11:07)
== END 2020-11-10 07:52 | disposition home or self-care (01) ==
LOC: BICCT 07:51
PROVIDERS: ATTEND Internal Medicine Hematology & Oncology
DX: C82.13 Follicular lymphoma grade II, intra-abdominal lymph nodes (principal); R91.8 Other nonspecific abnormal finding of lung field; K76.0 Fatty (change of) liver, not elsewhere classified
CPT/HCPCS: 71260; 74177; Q9967

== ENCOUNTER 2021-08-12 07:30 | Outpatient (CLI) | payer BC | END 2021-08-12 07:31 | disposition home or self-care (01) | LOC: BICCT 07:30 | PROVIDERS: ATTEND Internal Medicine Hematology & Oncology | DX: C82.13 Follicular lymphoma grade II, intra-abdominal lymph nodes (principal); I88.0 Nonspecific mesenteric lymphadenitis | CPT/HCPCS: 71260; 74177 ==

== ENCOUNTER 2022-04-26 07:22 | Outpatient (CLI) | payer BC ==
[2022-04-26] MEDS ORDERED: Iopamidol-370 76% 500 ML 1 ML ONE (09:20)
== END 2022-04-26 07:23 | disposition home or self-care (01) ==
LOC: BICCT 07:22
PROVIDERS: ATTEND Internal Medicine Hematology & Oncology
DX: C82.13 Follicular lymphoma grade II, intra-abdominal lymph nodes (principal)
CPT/HCPCS: 71260; 74177; 82565; Q9967

== ENCOUNTER 2022-05-10 07:53 | Outpatient (CLI) | payer BC | END 2022-05-10 07:54 | disposition home or self-care (01) | LOC: BICULT 07:53 | PROVIDERS: ATTEND Advanced Practice Midwife | DX: N64.9 Disorder of breast, unspecified (principal) | CPT/HCPCS: 77066; G0279 ==

== ENCOUNTER 2022-10-25 07:21 | Outpatient (CLI) | payer BC ==
[2022-10-25] MEDS ORDERED: Iopamidol-370 76% 500 ML 1 ML ONE (09:25)
== END 2022-10-25 07:22 | disposition home or self-care (01) ==
LOC: BICCT 07:21
PROVIDERS: ATTEND Internal Medicine Hematology & Oncology
DX: C82.13 Follicular lymphoma grade II, intra-abdominal lymph nodes (principal); K44.9 Diaphragmatic hernia without obstruction or gangrene; K57.92 Diverticulitis of intestine, part unspecified, without perforation or abscess without bleeding
CPT/HCPCS: 71260; 74177; 82565; Q9967

== ENCOUNTER 2023-04-21 07:16 | Outpatient (CLI) | payer BC ==
[2023-04-21] MEDS ORDERED: Iopamidol-370 76% 500 ML MDV (1 ML CHARGE) ONE (14:32)
== END 2023-04-21 07:17 | disposition home or self-care (01) ==
LOC: BICCT 07:16
PROVIDERS: ATTEND Internal Medicine Hematology & Oncology
DX: C82.13 Follicular lymphoma grade II, intra-abdominal lymph nodes (principal); I88.0 Nonspecific mesenteric lymphadenitis; K44.9 Diaphragmatic hernia without obstruction or gangrene; K57.30 Diverticulosis of large intestine without perforation or abscess without bleeding
CPT/HCPCS: 71260; 74177; 82565; Q9967

== ENCOUNTER 2023-11-08 07:21 | Outpatient (CLI) | payer BC ==
[2023-11-08] MEDS ORDERED: Iopamidol 370 76% 100 ML VIAL ONE (12:53)
== END 2023-11-08 07:22 | disposition home or self-care (01) ==
LOC: BICCT 07:21
PROVIDERS: ATTEND Internal Medicine Hematology & Oncology
DX: C82.13 Follicular lymphoma grade II, intra-abdominal lymph nodes (principal)
CPT/HCPCS: 71260; 74177; 82565

== ENCOUNTER 2024-05-23 07:17 | Outpatient (CLI) | payer BC | END 2024-05-23 07:18 | disposition home or self-care (01) | LOC: BICCT 07:17 | PROVIDERS: ATTEND Internal Medicine Hematology & Oncology | DX: C82.13 Follicular lymphoma grade II, intra-abdominal lymph nodes (principal) | CPT/HCPCS: 36415; 71260; 74177; 82565 ==

== ENCOUNTER 2025-03-27 15:39 | Outpatient (CLI) | payer BC | END 2025-03-27 15:40 | disposition home or self-care (01) | LOC: BICMAMMO 15:39 | PROVIDERS: ATTEND Physician Assistant | DX: Z12.31 Encounter for screening mammogram for malignant neoplasm of breast (principal); Z85.89 Personal history of malignant neoplasm of other organs and systems | CPT/HCPCS: 77063; 77067 ==